=== PATIENT | female | born 1940 | race Caucasian/White ===

== ENCOUNTER 2016-11-24 22:59 | Inpatient (IN) | payer MEDICARE, OTHER ==
[2016-11-25] MEDS ORDERED: ONDANSETRON INJ 4 MG/2 ML VIAL IV ONE (00:16)
--- NOTE | 2016-11-25 00:16 | ED.PDOC ---
History of Present Illness - General Chief Complaint: GI Problem Stated Complaint: nausea Time Seen by Provider: 11/25/16 00:14 Information Source: patient Exam Limitations: no limitations - History of Present Illness Initial Comments: Lucretia Fischer 76 y/o female with hx of htn and recently being treated for uti with bactrim after c&s result sensitive.Initially was on cipro.Started bactrim tuesday but tonight after taking meds felt nauseated decided to come here.No vomiting no skin rash no fever. Abdominal Pain Onset Location: other - none Pain Radiation: other - denies abdominal pain Timing/Duration: 7-24 hours Improving Factors: nothing Worsening Factors: nothing Associated Symptoms: other - leg cramps Review of Systems - Review of Systems Constitutional: States: no symptoms reported EENTM: States: no symptoms reported Respiratory: States: no symptoms reported Cardiology: States: no symptoms reported Gastrointestinal/Abdominal: States: see HPI, nausea Genitourinary: States: no symptoms reported Musculoskeletal: States: no symptoms reported Skin: States: no symptoms reported Neurological: States: no symptoms reported Endocrine: States: no symptoms reported Hematologic/Lymphatic: States: no symptoms reported Past Medical History (General) - Patient Medical History Hx Seizures: No Hx Stroke: No Hx Dementia: No Hx Asthma: No Hx of COPD: No Hx Cardiac Disorders: No Hx Congestive Heart Failure: No Hx Pacemaker: No Hx Hypertension: Yes Hx Thyroid Disease: No Hx Diabetes: No Hx Gastroesophageal Reflux: No Hx Renal Disease: No Hx Cancer: Yes - ovarian Hx of HIV: No Hx Hepatitis C: No Hx MRSA: No Surgical History: appendectomy, cholecystectomy, Hysterectomy, other - bladder suspension,hysterectomy - Vaccination History Hx Tetanus, Diphtheria Vaccination: No Hx Influenza Vaccination: Yes Hx Pneumococcal Vaccination: Yes Immunizations Up to Date: No - Social History Hx Tobacco Use: No Hx Chewing Tobacco Use: No Hx Alcohol Use: No Hx Substance Use: No Hx Substance Use Treatment: No Hx Depression: No Feels Threatened In Home Enviroment: No Feels Threatened In a Relationship: No Hx Physical Abuse: No Hx Emotional Abuse: No Hx Suspected Abuse: No - Activities of Daily Living Patient Lives Alone: No - family Hospice Agency (if applicable):: None Grooming Ability: Independent Eating (Feeding) Ability: Independent Toileting Ability: Independent - Female History Patient is a Female of Child Bearing Age (10 -59 yrs old): No Patient : No Family Medical History - Family History Mother Family History: Unknown Hx Family Hypertension: Yes Hx Family Cancer: Yes - dad-esophagus,leukemia Hx Family;Other: dementia Physical Exam - Physical Exam General Appearance: Alert, Comfortable, No apparent distress Eyes, Ears, Nose, Throat Exam: PERRL/EOMI, normal ENT inspection, TMs normal, pharynx normal Neck: non-tender, full range of motion, supple Respiratory: chest non-tender, lungs clear Cardiovascular/Chest: normal peripheral pulses, regular rate, rhythm, no edema, no gallop, no JVD, no murmur Peripheral Pulses: No deficit Gastrointestinal/Abdominal: normal bowel sounds, non tender, soft, no organomegaly Back Exam: normal inspection, no CVA tenderness, no vertebral tenderness Extremity: normal range of motion, non-tender, normal inspection, no pedal edema , no calf tenderness Neurologic: no motor/sensory deficits, alert, normal mood/affect, oriented x 3 Skin Exam: normal color, warm/dry Lymphatic: no adenopathy Progress - Results/Orders Results/Orders: 11/25/16 01:15 EKG Assessment DAILY 11/25/16 01:22 URINALYSIS Stat Laboratory Results WBC 6.6 K/mm3 (4.8-10.8) 11/25/16 00:50 RBC 4.34 M/mm3 (4.20-5.40) 11/25/16 00:50 Hgb 13.4 gm/dL (12.0-16.0) 11/25/16 00:50 Hct 38.8 % (36.0-47.0) 11/25/16 00:50 MCV 89.6 fl (81.0-99.0) 11/25/16 00:50 MCH 30.9 pg (27.0-31.0) 11/25/16 00:50 MCHC 34.5 g/dL (33.0-37.0) 11/25/16 00:50 RDW 12.6 % (11.5-14.5) 11/25/16 00:50 Plt Count 190 K/mm3 (130-400) 11/25/16 00:50 MPV 9.0 fl (7.40-10.4) 11/25/16 00:50 Absolute Neuts (auto) 4.70 K/uL (1.8-6.8) 11/25/16 00:50 Absolute Lymphs (auto) 1.10 K/uL (1.0-3.4) 11/25/16 00:50 Absolute Monos (auto) 0.60 K/uL (0.2-0.8) 11/25/16 00:50 Absolute Eos (auto) 0.10 K/uL (0.0-0.4) 11/25/16 00:50 Absolute Basos (auto) 0.00 K/uL (0.0-0.1) 11/25/16 00:50 Neutrophils % 72.2 % (42.0-78.0) 11/25/16 00:50 Lymphocytes % 16.6 % (20.0-50.0) L 11/25/16 00:50 Monocytes % 9.6 % (2.0-9.0) H 11/25/16 00:50 Eosinophils % 0.9 % (1.0-5.0) L 11/25/16 00:50 Basophils % 0.7 % (0.0-2.0) 11/25/16 00:50 Sodium 118 mmol/L (135-145) L* 11/25/16 00:50 Potassium 4.1 mmol/L (3.6-5.0) 11/25/16 00:50 Chloride 84 mmol/L (101-111) L 11/25/16 00:50 Carbon Dioxide 24 mmol/L (21-31) 11/25/16 00:50 Anion Gap 14.1 (12-18) 11/25/16 00:50 BUN 12 mg/dL (7-18) 11/25/16 00:50 Creatinine 0.58 mg/dL (0.6-1.3) L 11/25/16 00:50 BUN/Creatinine Ratio 20.7 (10-20) H 11/25/16 00:50 Random Glucose 120 mg/dL (70-105) H 11/25/16 00:50 Serum Osmolality 235.7 mOsm/L (275-295) L* 11/25/16 00:50 Calcium 8.5 mg/dL (8.4-10.2) 11/25/16 00:50 Total Bilirubin 0.9 mg/dL (0.2-1.0) 11/25/16 00:50 AST 32 IU/L (10-42) 11/25/16 00:50 ALT 28 IU/L (10-60) 11/25/16 00:50 Alkaline Phosphatase 61 IU/L (42-121) 11/25/16 00:50 Serum Total Protein 6.8 gm/dL (6.4-8.2) 11/25/16 00:50 Albumin 4.0 g/dl (3.2-5.5) 11/25/16 00:50 Globulin 2.8 gm/dL (2.3-3.5) 11/25/16 00:50 Albumin/Globulin Ratio 1.4 (1.1-1.9) 11/25/16 00:50 Lipase 25 U/L (22-51) 11/25/16 00:50 Vital Signs - 8 hr 11/24/16 11/25/16 11/25/16 23:58 00:56 01:06 Temperature 97 F L 98.2 F Pulse Rate [ 66 66 60 monitor] Respiratory 20 20 18 Rate Blood Pressure 150/76 125/66 [Left Arm] O2 Sat by Pulse 97 97 Oximetry Departure - Departure Clinical Impression: Hyponatremia with decreased serum osmolality, Nausea Time of Disposition: 01:46 - D/W Ling Munguia ANP-Hospitalist for admit Disposition: Admit Patient Condition: Good Departure Forms: Patient Portal Self Enrollment Referrals: Carlos Bae MD [Primary Care Provider] - 1-2 Weeks Home Medications: Ambulatory Orders Chlorthalidone 12.5 mg PO DAILY 01/20/16 Enalapril Maleate [Vasotec] 20 mg PO BID 01/20/16 Levothyroxine Sodium [Synthroid] 50 mcg PO DAILY 01/20/16 Metoprolol Succinate [Metoprolol Succinate ER] 100 mg PO DAILY 01/20/16 Simvastatin [Zocor] 20 mg PO DAILY 01/20/16 Gabapentin 600 mg PO DAILY 11/25/16
[2016-11-25] MEDS ORDERED: fentaNYL CITRATE INJ 50 MCG/ML AMP ONE (01:30)
--- NOTE | 2016-11-25 02:19 | HP ---
SUPERVISING PHYSICIAN: Adam Jimenes MD CHIEF COMPLAINT: Nausea and foggy thinking. HISTORY OF PRESENT ILLNESS: This is a 76-year-old female patient with a recent history of urinary tract infection. She had been treated by PASCUAL Persaud, with Cipro at some point last week, but after her cultures were available, it was resistant to Cipro, so she changed her to Bactrim. She had taken 2-1/2 days of her antibiotics. Her urinary tract infection symptoms had improved, but yesterday she said she had really foggy thinking and what she thought was almost hot flash type symptoms as well as some nausea, but she had no vomiting. She decided to come to the Emergency Room. Her workup in the Emergency Room had a CBC that was basically within normal limits as well as mostly clear urine. Her chemistry revealed she had a sodium of 118 and serum osmolality of 235.7. She was given some fluids and I was called for admission. PAST MEDICAL HISTORY: 1. Hypertension. 2. Hypothyroidism. 3. Neuropathy, most likely right sciatica. PAST SURGICAL HISTORY: 1. Cholecystectomy. 2. Appendectomy. 3. Hysterectomy and bladder suspension. 4. Ovary removed that had some cancerous lesions on it, but was contained to that ovary. 5. Second bladder suspension. 6. Bilateral knee replacement. 7. Fracture of the left femur that was repaired. 8. Fracture of the right hip that was repaired. OUTPATIENT MEDICATIONS: Per the EMR and awaiting verification. ALLERGIES: CODEINE, WILIAM, PENICILLIN. SOCIAL HISTORY: She is . Her son lives with her. She denies any tobacco, ETOH, or illicit drug use. REVIEW OF SYSTEMS: GENERAL: positive for fatigue, negative for fever or weight changes. HEENT: Denies sinus symptoms, ear pain, vision changes or sore throat. RESPIRATORY: Denies wheezing, coughing or shortness of breath. CARDIAC: Denies chest pain, palpitations or tachycardia. GASTROINTESTINAL: Positive for nausea, negative for vomiting, diarrhea, constipation or abdominal pain. SKIN: Negative for rashes or lesions. NEUROLOGIC: Positive for general weakness, negative for seizures or dizziness. PHYSICAL EXAMINATION: GENERAL: This is a 76-year-old female who is lying in her hospital bed. She is in no acute distress. HEENT: Normocephalic, atraumatic. Pupils are equal and reactive. NECK: Supple without mass. RESPIRATORY: Clear to auscultation bilaterally. CHEST: There is equal rise and fall of the chest with inspiration and expiration. CARDIOVASCULAR: Regular rate and rhythm. ABDOMEN: Soft, nondistended, nontender. Bowel sounds are positive. EXTREMITIES: No cyanosis, clubbing or edema. NEUROLOGIC: Awake, alert and oriented times three. SKIN: Warm and dry with no lesions or rashes noted. LABORATORY: Per the history of present illness, but her second set of chemistries showed sodium improved to 120. Chloride was 87 and serum osmolality was slightly improved to 239.7. All other labs and films have been reviewed via the EMR. ASSESSMENT: 1. Hyponatremia, most likely related to increase of water intake due to recent urinary tract infection. 2. Urinary tract infection, presently on antibiotic treatment. 3. Nausea, mostly resolved and most likely related to #1. 4. Hypertension. 5. Hypothyroidism. 6. Neuropathy. PLAN: We will admit the patient to the hospital. I will re-start her Bactrim as well as her home medications. I do not see any new changes in any of her medications and I do not believe it is the Bactrim that has caused the hyponatremia, but it probably is her increased water intake, which she said she did because she the infection. I will administer 100 mL of hypertonic saline and I will recheck her sodium this afternoon as well as check a magnesium. She will do a fluid restriction of 1500 mL per day. I will check her labs in the morning. Anticipate length of stay to be [address] Jimenes is the collaborating physician and available for consultation. #[id number] [facility]
[2016-11-25] MEDS ORDERED: SODIUM CHLORIDE 0.9% (FLUSH) 10 ML SYG IV PRN (03:17)
[2016-11-25] MEDS ORDERED: ACETAMINOPHEN 325 MG TAB PO PRN (03:19)
[2016-11-25] MEDS ORDERED: ONDANSETRON INJ 4 MG/2 ML VIAL IV PRN (03:19)
[2016-11-25] MEDS ORDERED: PANTOPRAZOLE SODIUM IV 40 MG VIAL IV SCH (03:30)
[2016-11-25] MEDS ORDERED: IV SET AND CAP CHANGE INJ INJ SCH (03:30)
[2016-11-25] MEDS: SODIUM CHLORIDE 0.9% 1000ML 1,000 ML IVS PRN ×2 (03:54→15:54)
[2016-11-25] MEDS ORDERED: SOD CHL 3% *HYPERTONIC* 500ML 500 ML IVS ONE (07:46)
[2016-11-25] MEDS ORDERED: METOPROLOL SUCCINATE XL 50 MG TAB ONE (08:01)
[2016-11-25] MEDS ORDERED: ENALAPRIL MALEATE 5 MG TAB ONE (08:01)
[2016-11-25] MEDS ORDERED: GABAPENTIN 300 MG CAP ONE (08:02)
[2016-11-25] MEDS: GABAPENTIN 300 MG CAP PO SCH (09:12)
[2016-11-25] MEDS: LEVOTHYROXINE SODIUM 0.025 MG TAB PO SCH (09:12)
[2016-11-25] MEDS: METOPROLOL SUCCINATE XL 100 MG TAB PO SCH (09:15)
[2016-11-25] MEDS: ENALAPRIL MALEATE 5 MG TAB PO SCH ×2 (09:15→21:36)
[2016-11-25] MEDS: SIMVASTATIN 20 MG TAB PO SCH (09:15)
[2016-11-25] MEDS: CHLORTHALIDONE 25 MG TAB PO SCH (09:15)
[2016-11-25] MEDS ORDERED: SOD CHL 3% *HYPERTONIC* 500ML 100 ML IVS ONE (10:31)
[2016-11-25] MEDS: cefTRIAXone SODIUM 1 GM in SODIUM CHL 0.9% 50ML MIN-BAG+ 50 ML IVPB SCH (12:12)
[2016-11-25] MEDS ORDERED: cefTRIAXone SODIUM 1 GM in SODIUM CHL 0.9% 50ML MIN-BAG+ 50 ML IVPB SCH (12:30)
[2016-11-25] MEDS: BIFIDOBACTERIUM INFANTIS 4 MG CAP PO SCH (14:53)
[2016-11-25] MEDS ORDERED: SODIUM CHL 0.9% 50ML MIN-BAG+ 50 ML IVPB ONE (20:41)
[2016-11-25] MEDS ORDERED: PANTOPRAZOLE SODIUM TAB 40 MG PO ONE (20:41)
[2016-11-25] MEDS ORDERED: cefTRIAXone SODIUM 1 GM VIAL ONE (20:42)
[2016-11-26] MEDS: cefTRIAXone SODIUM 1 GM in SODIUM CHL 0.9% 50ML MIN-BAG+ 50 ML IVPB SCH (00:06)
[2016-11-26] MEDS: SODIUM CHLORIDE 0.9% 1000ML 1,000 ML IVS PRN (00:07)
[2016-11-26] MEDS: LEVOTHYROXINE SODIUM 0.025 MG TAB PO SCH (06:24)
[2016-11-26] MEDS ORDERED: PANTOPRAZOLE SODIUM TAB 40 MG PO SCH (06:30)
[2016-11-26] MEDS: BIFIDOBACTERIUM INFANTIS 4 MG CAP PO SCH (09:09)
[2016-11-26] MEDS: ENALAPRIL MALEATE 5 MG TAB PO SCH (09:09)
[2016-11-26] MEDS: CHLORTHALIDONE 25 MG TAB PO SCH (09:10)
[2016-11-26] MEDS: GABAPENTIN 300 MG CAP PO SCH (09:10)
[2016-11-26] MEDS: METOPROLOL SUCCINATE XL 100 MG TAB PO SCH (09:12)
[2016-11-26] MEDS: SIMVASTATIN 20 MG TAB PO SCH (09:12)
[2016-11-26 10:56] VITALS: BP 133/68; TEMP 98.4; O2SAT 94
--- NOTE | 2016-11-26 17:17 | DS ---
SUPERVISING PHYSICIAN: Kd Jimenes M.D. DISCHARGE DIAGNOSIS: 1. Hyponatremia, most likely related to increased water intake due to recent urinary tract infection and may have been complicated by her Bactrim antibiotic. 2. Urinary tract infection, presently on antibiotic treatment. 3. Nausea, mostly resolved and most likely related to #1. 4. Hypertension. 5. Hypothyroidism. 6. Neuropathy. HISTORY OF PRESENT ILLNESS: This is a 76 year-old female patient that had a recent history of a urinary tract infection. She had been treated by PASCUAL Persaud, with Cipro on the week prior to her admission. When her culture and sensitivities were available, it was found to be resistant to Cipro and she was changed to Bactrim. Over the next several days when she took her Bactrim, she also increased her fluid intake. On the date of admission, she had some what she called foggy thinking as well as some hot flash type symptoms, as well as nausea but no vomiting. After this had gone on for several hours, she decided to come to the Emergency Room. In the Emergency Room, her workup showed that she had an essentially normal CBC as well as her urinalysis was within normal limits, but her chemistry revealed she had a sodium of 118 with a serum osmolality of 235.7. In the Emergency Room, she was given some IV fluids and I admitted her to the hospital. HOSPITAL COURSE: Initially her sodium only went up to 120 even after fluid restrictions, so I gave her a small bolus of hypertonic saline solution. She was also placed on Rocephin and her Bactrim was discontinued. She was given Rocephin for her urinary tract infection. She had no further complications in her stay. Her nausea resolved as well as her confusion and foggy thinking. She also had no complaints of any hot flash type symptoms. Today, her sodium is now 129. Her chloride is 100, BUN 11 and creatinine 0.63. Serum osmolality is 258.1. At this point, I believe that she can be discharged home. DISCHARGE PLAN: The patient will be discharged home in good condition. She is to resume her previous activities as well as her previous diet. She has an appointment with Dr. Bae on the at 9:45. She has been instructed to come to the hospital lab on the for a BMP so those results will be available to Dr. Bae. I have sent her home on a prescription of Cefdinir. She will have a total regimen of antibiotics for 10 days including her hospital stay. She has also been given some probiotics. She is to return to the hospital or call Dr. Bae's office for any further complications. DISCHARGE MEDICATIONS: 1. Simvastatin. 2. Metoprolol. 3. Levothyroxine. 4. Vasotec. 5. Chlorthalidone. 6. Gabapentin. 7. Align. 8. Cefdinir. Dr. Jimenes is the collaborating physician available for consultation. #[id number] [facility]
== END 2016-11-26 11:27 | disposition home or self-care (01) | DRG 641 ==
LOC: ER 22:59 → MS 11-25 02:19 → OBSVTOIN 11-25 02:19
PROVIDERS: ADMIT Nurse Practitioner Acute Care; ATTEND Nurse Practitioner Acute Care
DX: E87.1 Hypo-osmolality and hyponatremia (principal); N39.0 Urinary tract infection, site not specified; R11.0 Nausea; I10 Essential (primary) hypertension; E03.9 Hypothyroidism, unspecified; G62.9 Polyneuropathy, unspecified; Z88.0 Allergy status to penicillin; Z88.6 Allergy status to analgesic agent; Z88.8 Allergy status to other drugs, medicaments and biological substances; Z96.653 Presence of artificial knee joint, bilateral; Z16.23 Resistance to quinolones and fluoroquinolones

== ENCOUNTER → 2016-12-08 | Outpatient (CLI) | payer MEDICARE, OTHER | END | disposition home or self-care (01) | LOC: LAB.O 08:10 | PROVIDERS: ATTEND Nurse Practitioner Acute Care | DX: E87.1 Hypo-osmolality and hyponatremia (principal) ==

== ENCOUNTER → 2016-12-21 | Outpatient (CLI) | payer MEDICARE, OTHER | END | disposition home or self-care (01) | LOC: LAB.O 09:46 | PROVIDERS: ATTEND Obstetrics & Gynecology | DX: E78.1 Pure hyperglyceridemia (principal) ==

== ENCOUNTER → 2017-02-15 | Outpatient (CLI) | payer MEDICARE, OTHER ==
--- NOTE | 2017-02-16 09:51 | MRI ---
EXAM DESCRIPTION: Lumbar Spine w/o Contrast CLINICAL HISTORY: 76 years, Female, LUMBAR RADICULOPATHY right hip and leg pain COMPARISON: None. FINDINGS: Sagittal and axial sequences. Bone marrow has normal signal characteristics. Conus terminates at L2. For purposes of numbering L5 is considered a transitional vertebrae. Benign appearing Cyst slightly more and 6 cm upper left kidney. Small subcentimeter cyst right kidney. At L1-2, right lateral protruding disc about 5 mm narrows the exit foramen. There is also a large left lateral protruding disc about 4 mm narrowing of left exit foramen probable slight impingement on the exiting left L1 root. Mild degenerative change. Mild central stenosis. Narrowing L2-3 with diffuse bulging disc osteophyte asymmetric to the left. Narrowing of the left exit foramen and impingement on the exiting left L2 root. Facet degenerative change and mild central stenosis. Probable slight impingement on the left lateral recess Narrowing L3-4 with diffuse bulging disc osteophyte asymmetric to the left. Bilateral moderately severe foraminal narrowing. Moderately severe central stenosis. Bilateral lateral recess encroachment, more on the left. Narrowing L4-5 with about 5 mm of anterolisthesis. Diffuse bulging disc extending the exit foramen bilaterally more on the right. Moderate central stenosis At L5-S1 minimal bulge asymmetric to the right with facet degenerative change. IMPRESSION: 1. Extensive disc disease throughout the lumbar spine 2. Changes probably most advanced at L3-4 and L4-5 with bulging disc and moderate central stenosis at both levels. Bilateral foraminal narrowing at these levels. 3. Fairly severe disease L2-3 as well with bulging disc osteophyte impingement on the exiting left L2 root. 4. Mildly severe disease L1-2 with bilateral foraminal narrowing and mild central stenosis Electronically signed by: Flaco Barnes MD 02/16/2017 9:50 AM CDT
== END | disposition home or self-care (01) ==
LOC: MRI 10:05
PROVIDERS: ATTEND Psychiatry & Neurology Neurology
DX: G60.3 Idiopathic progressive neuropathy (principal); M51.16 Intervertebral disc disorders with radiculopathy, lumbar region; M81.0 Age-related osteoporosis without current pathological fracture

== ENCOUNTER → 2017-02-22 | Outpatient (CLI) | payer MEDICARE, OTHER | END | disposition home or self-care (01) | LOC: LAB.O 09:37 | PROVIDERS: ATTEND Obstetrics & Gynecology | DX: E03.9 Hypothyroidism, unspecified (principal); E78.5 Hyperlipidemia, unspecified; E87.1 Hypo-osmolality and hyponatremia; I10 Essential (primary) hypertension ==

== ENCOUNTER → 2017-05-16 | Outpatient (CLI) | payer MEDICARE, OTHER ==
--- NOTE | 2017-05-17 14:31 | RAD ---
EXAM DESCRIPTION: Chest,2 Views CLINICAL HISTORY: Encounter for other preprocedural examination COMPARISON: June 24, 2012 FINDINGS: The cardiomediastinal silhouette is unremarkable. Evidence of old healed granulomatous disease with a calcified lymph node in the AP window and a tiny calcified granuloma in the mid left lung. There is no airspace consolidation or pleural effusion. There is chronic elevation of the right hemidiaphragm. There is no pneumothorax or acute fracture. IMPRESSION: No acute findings. Electronically signed by: Diallo Wilcox MD 05/17/2017 2:29 PM CDT
== END | disposition home or self-care (01) ==
LOC: LAB.O 14:39
PROVIDERS: ATTEND Obstetrics & Gynecology
DX: Z01.811 Encounter for preprocedural respiratory examination (principal); Z01.812 Encounter for preprocedural laboratory examination

== ENCOUNTER → 2017-05-17 | Outpatient (CLI) | payer MEDICARE, OTHER | END | disposition home or self-care (01) | LOC: RESP 09:54 | PROVIDERS: ATTEND Obstetrics & Gynecology | DX: Z01.810 Encounter for preprocedural cardiovascular examination (principal) ==

== ENCOUNTER 2017-06-12 10:10 | Emergency (ER) | payer MEDICARE, OTHER ==
[2017-06-12 10:29] VITALS: BP 166/89; TEMP 97.8; O2SAT 98
[2017-06-12] MEDS ORDERED: NITROFURANTOIN MONOHYDRATE MAC 100 MG CAP PO ONE (10:52)
--- NOTE | 2017-06-12 10:56 | ED.PDOC ---
History of Present Illness - General Chief Complaint: Problem Stated Complaint: Dysuria, urgency, frequeny Time Seen by Provider: 06/12/17 10:17 Source: patient Exam Limitations: no limitations - History of Present Illness Initial Comments: the patient is a 76-year-old female presenting to the emergency room secondary to symptoms of a UTI for the last 2-3 days. She has had some urinary frequency and dysuria. No back pain and no fevers. She did have a urinary tract infection about 6 or 7 months ago. No history of any kidney problems. No hematuria. She did have a surgery a few weeks ago and was uncertain if she had a catheter during the procedure. Timing/Duration: other Severity: moderate Improving Factors: nothing Worsening Factors: nothing Associated Symptoms: denies symptoms Allergies/Adverse Reactions: Allergies Codeine Allergy (Verified 11/24/16 23:58) Fexofenadine [From Varsha] Allergy (Verified 11/24/16 23:58) Penicillin G Allergy (Verified 11/24/16 23:58) Home Medications: Ambulatory Orders Chlorthalidone 12.5 mg PO DAILY 01/20/16 Enalapril Maleate [Vasotec] 20 mg PO BID 01/20/16 Levothyroxine Sodium [Synthroid] 50 mcg PO DAILY 01/20/16 Metoprolol Succinate [Metoprolol Succinate ER] 100 mg PO DAILY 01/20/16 Simvastatin [Zocor] 10 mg PO DAILY 01/20/16 Gabapentin 600 mg PO BID #0 11/25/16 Celecoxib [Celebrex] 200 mg PO BID 06/12/17 Nitrofurantoin Monohydrate Mac [Macrobid] 100 mg PO BID #10 cap 06/12/17 Review of Systems - Review of Systems Constitutional: States: no symptoms reported EENTM: States: no symptoms reported Respiratory: States: no symptoms reported Cardiology: States: no symptoms reported Gastrointestinal/Abdominal: States: no symptoms reported Genitourinary: States: see HPI Musculoskeletal: States: no symptoms reported Skin: States: no symptoms reported Neurological: States: no symptoms reported Endocrine: States: no symptoms reported All other Systems: No Change from Baseline Past Medical History (General) - Patient Medical History Hx Seizures: No Hx Stroke: No Hx Dementia: No Hx Asthma: No Hx of COPD: No Hx Cardiac Disorders: Yes - hypercholesterolemia Hx Congestive Heart Failure: No Hx Pacemaker: No Hx Hypertension: Yes Hx Thyroid Disease: Yes Hx Diabetes: No Hx Gastroesophageal Reflux: No Hx Renal Disease: No Hx Cancer: Yes - ovarian Hx of HIV: No Hx Hepatitis C: No Hx MRSA: No Surgical History: other - Vaccination History Hx Tetanus, Diphtheria Vaccination: No Hx Influenza Vaccination: Yes - 2017 Hx Pneumococcal Vaccination: Yes Immunizations Comment: Shingles vaccine 2015; had DPT 2015 - Social History Hx Tobacco Use: No Hx Chewing Tobacco Use: No Hx Alcohol Use: No Hx Substance Use: No Hx Substance Use Treatment: No Hx Depression: No Hx Physical Abuse: No Hx Emotional Abuse: No Hx Suspected Abuse: No - Female History Patient : No Family Medical History - Family History Mother Family History: Unknown Hx Family Hypertension: Yes Hx Family Cancer: Yes - dad-esophagus,leukemia Hx Family;Other: dementia Physical Exam - Physical Exam General Appearance: Alert, Comfortable, No apparent distress Eye Exam: bilateral normal Ears, Nose, Throat: hearing grossly normal Neck: full range of motion, supple Respiratory: no respiratory distress, no accessory muscle use Cardiovascular/Chest: normal peripheral pulses, no edema, other - regular rate Peripheral Pulses: radial,right: 2+, radial,left: 2+ Rectal Exam: deferred Back Exam: no CVA tenderness, no vertebral tenderness Extremity: non-tender, no pedal edema, no calf tenderness, normal capillary refill Neurologic: well tender II-XII nml as tested, alert, normal mood/affect, oriented x 3 Skin Exam: normal color Comments: Vital Signs - 24 hr 06/12/17 10:15 Temperature 97.8 F Pulse Rate [ 65 Left Radial] Respiratory 20 Rate Blood Pressure 166/89 [Left Arm] O2 Sat by Pulse 98 Oximetry Progress - Progress Progress: 06/12/17 10:54 the patient's 76-year-old female presenting to the emergency room secondary to symptoms of urinary tract infection. She does appear to have a urinary tract infection based on the urinalysis. A urine culture is being done. The patient is going to be placed on Macrobid 100 mg twice daily for the next 5 days. She does need follow-up with her primary care doctor in 5 days to recheck the urine culture as well as to repeat a urinalysis to confirm clearing. She needs to increase her fluid intake. Motrin can be used for discomfort. ER warnings were given for any significant worsening. No evidence of sepsis or pyelonephritis at this time. - Results/Orders Results/Orders: Laboratory Tests 06/12/17 10:19 Urine Color Yellow Urine Appearance Cloudy Urine pH 7.0 Ur Specific [place] 1.020 Urine Protein Trace Urine Glucose (UA) Negative Urine Ketones Negative Urine Blood Large H Urine Nitrite Negative Urine Bilirubin Negative Urine Urobilinogen 0.2 Ur Leukocyte Esterase Small H Urine RBC 20-30 H Urine WBC 10-20 H Ur Epithelial Cells 3-5 Urine Bacteria 3+ H Departure - Departure Clinical Impression: Cystitis Disposition: Discharge to Home or Self Care Condition: Fair Departure Forms: ED Discharge - Pt. Copy, Patient Portal Self Enrollment Instructions: DI for Urinary Tract Infection (UTI) Diet: regular diet Activity: increase activity as tolerated Referrals: Carlos Bae MD [Primary Care Provider] - 1-2 Weeks Prescriptions: Nitrofurantoin Monohydrate Mac [Macrobid] 100 mg PO BID #10 cap Home Medications: Ambulatory Orders Chlorthalidone 12.5 mg PO DAILY 01/20/16 Enalapril Maleate [Vasotec] 20 mg PO BID 01/20/16 Levothyroxine Sodium [Synthroid] 50 mcg PO DAILY 01/20/16 Metoprolol Succinate [Metoprolol Succinate ER] 100 mg PO DAILY 01/20/16 Simvastatin [Zocor] 10 mg PO DAILY 01/20/16 Gabapentin 600 mg PO BID #0 11/25/16 Celecoxib [Celebrex] 200 mg PO BID 06/12/17 Nitrofurantoin Monohydrate Mac [Macrobid] 100 mg PO BID #10 cap 06/12/17 Additional Instructions: the patient's 76-year-old female presenting to the emergency room secondary to symptoms of urinary tract infection. She does appear to have a urinary tract infection based on the urinalysis. A urine culture is being done. The patient is going to be placed on Macrobid 100 mg twice daily for the next 5 days. She does need follow-up with her primary care doctor in 5 days to recheck the urine culture as well as to repeat a urinalysis to confirm clearing. She needs to increase her fluid intake. Motrin can be used for discomfort. ER warnings were given for any significant worsening. No evidence of sepsis or pyelonephritis at this time.
== END 2017-06-12 11:06 | disposition home or self-care (01) ==
LOC: ER 10:10
DX: N30.90 Cystitis, unspecified without hematuria (principal); I10 Essential (primary) hypertension; E07.9 Disorder of thyroid, unspecified; Z85.43 Personal history of malignant neoplasm of ovary; Z88.6 Allergy status to analgesic agent; Z88.0 Allergy status to penicillin

== ENCOUNTER → 2019-05-03 | Outpatient (CLI) | payer MEDICARE, OTHER ==
--- NOTE | 2019-05-04 17:19 | MAM ---
EXAM DESCRIPTION: 3D Screening BILATERAL : Digital Mammography. CLINICAL HISTORY: 78 years Female ANNUAL SCREENING .. No complaints. No personal history of breast cancer. Remote family history of breast cancer. Menarche age 9. Childbirth. Postmenopausal 30+ years. No HRT. Lifetime risk of developing breast cancer (Tyrer-Cuzick model)(%): 2.0. COMPARISON: 2-D digital screening bilateral mammography 28 October 2015.. TECHNIQUE: Bilateral CC and MLO projection full-field images, digital tomosynthesis mammographic technique. Bilateral digital 2-D full-field MLO images. CAD not available for tomosynthesis or 2-D images. FINDINGS: The breast parenchymal density pattern is: Scattered areas of fibroglandular density. No skin thickening or nipple retraction. Bilateral solitary microcalcifications. Bilateral vascular calcifications. Bilateral skin moles. Bilateral solitary microcalcifications. Bilateral retroareolar calcifications more on the right. No new focal, stellate mass or density, focal asymmetry , and no suspicious microcalcifications bilaterally. Stable mammograms compared to prior study. Taking into account, differences in mammographic technique. IMPRESSION: Benign exam. BIRAD CATEGORY: 2 BENIGN FINDINGS. RECOMMENDATIONS: FOLLOW UP: Routine digital bilateral mammographic screening, one year interval from April 2019. Written communication explaining the IMPRESSION and follow-up, will be mailed to the patient and referring health care provider. According to the [employer], yearly mammograms are recommended starting at age 40 and continuing as long as a woman is in good health. Any breast change noted on a breast self-exam should be reported promptly to the patient's healthcare provider. Breast MRI is recommended for women with an approximately 20-25% or greater lifetime risk of breast cancer, including women with a strong family history of breast or ovarian cancer and women who have been treated for Hodgkin's disease. A negative mammographic report should not delay tissue diagnosis in patients with significant clinical history or physical findings. Extremely dense breast tissue limits the sensitivity of digital mammography. Electronically signed by: Yair Davis MD 05/04/2019 5:17 PM CDT
== END ==
LOC: MAMMO 07:39
PROVIDERS: ATTEND Obstetrics & Gynecology
DX: Z12.31 Encounter for screening mammogram for malignant neoplasm of breast (principal)

== ENCOUNTER → 2019-05-09 | Outpatient (CLI) | payer MEDICARE, OTHER | LOC: LAB.O 08:49 | PROVIDERS: ATTEND Obstetrics & Gynecology | DX: Z01.419 Encounter for gynecological examination (general) (routine) without abnormal findings (principal); E03.9 Hypothyroidism, unspecified; E78.5 Hyperlipidemia, unspecified; E11.9 Type 2 diabetes mellitus without complications ==

== ENCOUNTER 2020-01-21 12:36 | Emergency (ER) | payer MEDICARE, OTHER ==
--- NOTE | 2020-01-21 13:11 | ED.PDOC ---
History of Present Illness - General Time Seen by Provider: 01/21/20 13:08 - History of Present Illness Initial Comments: 79 F +pmh presents to ED c/o right scalp laceration s/p fall. Pt informs she was outside gardening when she slipped and fell with her head hitting the concrete. She denies LOC, vision change, headache, dizziness, n/v. Denies h/o similar sx's. Denies alleviating factors. Denies any other complaints at this time. Allergies/Adverse Reactions: Allergies Codeine Allergy (Verified 11/24/16 23:58) Fexofenadine [From Varsha] Allergy (Verified 11/24/16 23:58) Penicillin G Allergy (Verified 11/24/16 23:58) Sulfamethoxazole w/Trimethoprim [From Bactrim] Allergy (Verified 01/21/20 13:11) Home Medications: Ambulatory Orders Chlorthalidone 12.5 mg PO DAILY 01/20/16 Enalapril Maleate [Vasotec] 20 mg PO BID 01/20/16 Levothyroxine Sodium [Synthroid] 50 mcg PO DAILY 01/20/16 Metoprolol Succinate [Metoprolol Succinate ER] 100 mg PO DAILY 01/20/16 Simvastatin [Zocor] 10 mg PO DAILY 01/20/16 Gabapentin 600 mg PO BID #0 11/25/16 Celecoxib [Celebrex] 200 mg PO BID 06/12/17 Nitrofurantoin Monohydrate Mac [Macrobid] 100 mg PO BID #10 cap 06/12/17 Review of Systems - Review of Systems Constitutional: Denies: chills, fever EENTM: Denies: blurred vision, double vision, ear pain, nose congestion Respiratory: Denies: cough, short of breath Gastrointestinal/Abdominal: Denies: nausea, vomiting Neurological: States: other - no dizziness, no syncope. Denies: headache Hematologic/Lymphatic: Denies: blood clots, easy bleeding, easy bruising Past Medical History (General) - Patient Medical History Hx Seizures: No Hx Stroke: No Hx Dementia: No Hx Asthma: No Hx of COPD: No Hx Cardiac Disorders: Yes - hypercholesterolemia Hx Congestive Heart Failure: No Hx Pacemaker: No Hx Hypertension: Yes Hx Thyroid Disease: Yes Hx Diabetes: No Hx Gastroesophageal Reflux: No Hx Renal Disease: No Hx Cancer: Yes - ovarian Hx of HIV: No Hx Hepatitis C: No Hx MRSA: No - Vaccination History Hx Tetanus, Diphtheria Vaccination: No Hx Influenza Vaccination: Yes - 2017 Hx Pneumococcal Vaccination: Yes - Social History Hx Tobacco Use: No Hx Chewing Tobacco Use: No Hx Alcohol Use: No Hx Substance Use: No Hx Substance Use Treatment: No Hx Depression: No Hx Physical Abuse: No Hx Emotional Abuse: No Hx Suspected Abuse: No - Female History Patient : No Family Medical History - Family History Mother Family History: Unknown Hx Family Hypertension: Yes Hx Family Cancer: Yes - dad-esophagus,leukemia Hx Family;Other: dementia Physical Exam - Physical Exam General Appearance: Alert, Comfortable, No apparent distress Head Injury: active bleeding, other - no holt sign, no raccoon eyes, no clear drainage from bilateral EAC's or nares, right 3 cm linear parietal/occiptal scalp laceration with mild continual bleeding and trace hematoma, no underlying crepitance, no underlying deformity, localized TTP only Eye Exam: bilateral normal, bilateral other - PERRLA, EOM intact, pupils symmetric bilaterally ENT Exam: no evidence of ENT injury, no dental injury Neck Exam: non-tender, full range of motion, normal alignment, normal inspection Cardiovascular/Respiratory: regular rate, rhythm, no M/R/G, normal peripheral pulses, no JVD, normal breath sounds, no respiratory distress Back Exam: no vertebral tenderness Extremity: normal range of motion, normal inspection Mental Status: alert, 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 Pt is not on blood thinners but does take ASA daily. Due to age and trauma I will perform CT imaging of neck and c-spine along with coags. I will suture pt's wound, place compressive dressing, and provide appropriate pharmacotherapy. I will continue to monitor/reassess and dispo will depend on workup and overall ED course; however, discharge home is expected. Ángel Martinez DO [employer]: 738 14:09 Rechecked with family at bedside. NAD, VSS, and is feeling much better at this time. I have discussed radiology results, my clinical impression, and diagnosis. I have also discussed plan for discharge home with f/u, education, need for retur in 10-12 days for staple removal. ED return precautions provided. Pt and family member voice understanding, agree with plan, and all questions answered. - Results/Orders Results/Orders: Laboratory Results - last 24 hr 01/21/20 13:30 PT 10.5 INR 1.06 PTT (SP) 21.3 L EXAM DESCRIPTION: Head CLINICAL HISTORY: 79 years Female, fall without LOC, right parietal/occip defect COMPARISON: None. TECHNIQUE: Axial images obtained from the skull base to the vertex without intravenous contrast with images. Coronal and sagittal reformations provided. This exam was performed according to our departmental dose-optimization program, which includes automated exposure control, adjustment of the mA and/or kV according to patient size and/or use of iterative reconstruction technique. Time Last Seen Well (If known) for Code Stroke: n/a FINDINGS: Brain Parenchyma, ventricles, meninges, and extra-axial spaces: Mild generalized cerebral atrophy. Mild Nonspecific white matter hypodensities in the cerebral hemispheres likely related to ischemic small vessel disease. Possible difficulty differentiating a small acute infarction given these hypodensities. No acute intracranial hemorrhage. No abnormal extra- axial fluid collection. Vascular: Atherosclerosis is within the carotid siphons. Calvarium, paranasal sinuses, mastoids, and orbits: Moderate right lateral scalp hematoma with skin inocencio in place. No underlying fracture. Mild mucosal thickening of the left maxillary sinus. Remaining paranasal sinuses and mastoids are clear. Orbits unremarkable. IMPRESSION: 1. No acute intracranial abnormality. 2. Moderate right lateral scalp hematoma with surgical skin inocencio in place. No underlying fracture. 3. Mild senescent changes. Electronically signed by: Pool Rich MD 01/21/2020 1:42 PM CDT EXAM DESCRIPTION: Cervical Spine CLINICAL HISTORY: 79 years Female, trauma COMPARISON: None. TECHNIQUE: Axial CT images were obtained through the cervical spine without contrast. Sagittal and coronal reformations provided. This exam was performed according to our departmental dose-optimization program, which includes automated exposure control, adjustment of the mA and/or kV according to patient size and/or use of iterative reconstruction technique. FINDINGS: Vertebrae and facet joints: No acute fracture or acute compression deformity. Straightening of the cervical spine. Normal AP alignment. Multilevel facet arthropathy, greatest and severe left C3-C4, left C4-C5. Disc spaces, spinal canal and neuroforamina: Moderate to severe disc space narrowing at C5-C6. Multiple disc osteophyte complexes, greatest at posterior right paracentral C5- C6 measuring 10 mm transverse and 5 mm AP contributing to severe spinal canal stenosis and flattening/indentation of the spinal cord. Multilevel neural foraminal compromise, greatest and severe at bilateral C5-C6. Paraspinous soft- tissues: Unremarkable paravertebral soft tissues. Heterogeneous and bulky right thyroid gland, ill-defined nodule measuring up to 1.8 cm. IMPRESSION: 1. No acute fracture or subluxation. 2. Cervical spondylosis as above, greatest at C5- C6. 3. Recommend dedicated ultrasound of the thyroid gland, if not already performed, to further evaluate for the thyroid findings described above. Electronically signed by: Pool Rich MD 01/21/2020 1:48 PM CDT - [id number] Procedures - Laceration/Wound Repair Right Posterior Lateral Parietal Wound Length (cm): 3 Wound's Depth, Shape: superficial, linear Wound Explored: clean Irrigated w/ Saline (cc's): 1,000 Betadine Prep?: No Wound Repaired With: inocencio Number of Sutures: 7 Layer Closure?: No Sterile Dressing Applied?: No Splint Applied?: No Sling Applied?: No Progress: Compressive dressing placed. Pt tolerated well without complication. Departure - Departure Clinical Impression: Fall Qualifiers: Encounter type: initial encounter Qualified Code(s): W19.XXXA - Unspecified fall, initial encounter Scalp laceration Qualifiers: Encounter type: initial encounter Qualified Code(s): S01.01XA - Laceration without foreign body of scalp, initial encounter Time of Disposition: 14:10 Disposition: Discharge to Home or Self Care Condition: Excellent Departure Forms: ED Discharge - Pt. Copy, Patient Portal Self Enrollment Instructions: Preventing Falls in the Older Adult, Laceration Repair With Inocencio (DC), Head Injury Observation (DC) Diet: resume usual diet Referrals: Carlos Bae MD [Primary Care Provider] - 1-2 Days Home Medications: Ambulatory Orders Chlorthalidone 12.5 mg PO DAILY 01/20/16 Enalapril Maleate [Vasotec] 20 mg PO BID 01/20/16 Levothyroxine Sodium [Synthroid] 50 mcg PO DAILY 01/20/16 Metoprolol Succinate [Metoprolol Succinate ER] 100 mg PO DAILY 01/20/16 Simvastatin [Zocor] 10 mg PO DAILY 01/20/16 Gabapentin 600 mg PO BID #0 11/25/16 Celecoxib [Celebrex] 200 mg PO BID 06/12/17 Nitrofurantoin Monohydrate Mac [Macrobid] 100 mg PO BID #10 cap 06/12/17
--- NOTE | 2020-01-21 13:43 | CT ---
EXAM DESCRIPTION: Head CLINICAL HISTORY: 79 years Female, fall without LOC, right parietal/occip defect COMPARISON: None. TECHNIQUE: Axial images obtained from the skull base to the vertex without intravenous contrast with images. Coronal and sagittal reformations provided. This exam was performed according to our departmental dose-optimization program, which includes automated exposure control, adjustment of the mA and/or kV according to patient size and/or use of iterative reconstruction technique. Time Last Seen Well (If known) for Code Stroke: n/a FINDINGS: Brain Parenchyma, ventricles, meninges, and extra-axial spaces: Mild generalized cerebral atrophy. Mild Nonspecific white matter hypodensities in the cerebral hemispheres likely related to ischemic small vessel disease. Possible difficulty differentiating a small acute infarction given these hypodensities. No acute intracranial hemorrhage. No abnormal extra-axial fluid collection. Vascular: Atherosclerosis is within the carotid siphons. Calvarium, paranasal sinuses, mastoids, and orbits: Moderate right lateral scalp hematoma with skin jessica in place. No underlying fracture. Mild mucosal thickening of the left maxillary sinus. Remaining paranasal sinuses and mastoids are clear. Orbits unremarkable. IMPRESSION: 1. No acute intracranial abnormality. 2. Moderate right lateral scalp hematoma with surgical skin jessica in place. No underlying fracture. 3. Mild senescent changes. Electronically signed by: Pool Rich MD 01/21/2020 1:42 PM CDT
--- NOTE | 2020-01-21 13:50 | CT ---
EXAM DESCRIPTION: Cervical Spine CLINICAL HISTORY: 79 years Female, trauma COMPARISON: None. TECHNIQUE: Axial CT images were obtained through the cervical spine without contrast. Sagittal and coronal reformations provided. This exam was performed according to our departmental dose-optimization program, which includes automated exposure control, adjustment of the mA and/or kV according to patient size and/or use of iterative reconstruction technique. FINDINGS: Vertebrae and facet joints: No acute fracture or acute compression deformity. Straightening of the cervical spine. Normal AP alignment. Multilevel facet arthropathy, greatest and severe left C3-C4, left C4-C5. Disc spaces, spinal canal and neuroforamina: Moderate to severe disc space narrowing at C5-C6. Multiple disc osteophyte complexes, greatest at posterior right paracentral C5-C6 measuring 10 mm transverse and 5 mm AP contributing to severe spinal canal stenosis and flattening/indentation of the spinal cord. Multilevel neural foraminal compromise, greatest and severe at bilateral C5-C6. Paraspinous soft-tissues: Unremarkable paravertebral soft tissues. Heterogeneous and bulky right thyroid gland, ill-defined nodule measuring up to 1.8 cm. IMPRESSION: 1. No acute fracture or subluxation. 2. Cervical spondylosis as above, greatest at C5-C6. 3. Recommend dedicated ultrasound of the thyroid gland, if not already performed, to further evaluate for the thyroid findings described above. Electronically signed by: Pool Rich MD 01/21/2020 1:48 PM CDT
[2020-01-21] MEDS ORDERED: HYDROcodone 5MG/APAP 325MG 1 EA TAB PO ONE (14:12)
[2020-01-21 14:46] VITALS: BP 136/70; TEMP 97.4; O2SAT 98
== END 2020-01-21 14:35 | disposition home or self-care (01) ==
LOC: ER 12:46
DX: S01.01XA Laceration without foreign body of scalp, initial encounter (principal); Z79.899 Other long term (current) drug therapy; W01.0XXA Fall on same level from slipping, tripping and stumbling without subsequent striking against object, initial encounter; Y92.9 Unspecified place or not applicable

== ENCOUNTER → 2020-02-21 | Outpatient (CLI) | payer MEDICARE, OTHER ==
--- NOTE | 2020-02-23 18:44 | US ---
US THYROID CLINICAL STATEMENT:79 years Female NONTOXIC SINGLE THYROID NODULE. COMPARISON: None TECHNIQUE: Transcutaneous scanning, grayscale and Doppler modes. FINDINGS: Size right thyroid lobe: 4.4 x 2.1 x 2.0 cm Size left thyroid lobe: 3.8 x 1.1 x 1.1 cm Size isthmus: 0.24 cm Estimated total number of nodules greater than or equal to 1 cm: 4. Heterogeneous gland. No cysts or fluid collections or large calcifications. Nodule 1: Size: 1.9 x 1.2 X 1.2 cm Location: Left Upper Composition: solid or almost completely solid: 2 points Echogenicity: hypoechoic: 2 points Shape: wider than tall: 0 points Margins: smooth: 0 points Echogenic foci: none: 0 points ACR Total Points: 4; ACR TI-RADS risk category: TR4 - moderately suspicious nodule. Nodule 2: Size: 1.8 x 1.5 x 1.3 cm Location: Right Mid Composition: solid or almost completely solid: 2 points Echogenicity: hypoechoic: 2 points Shape: wider than tall: 0 points Margins: smooth: 0 points Echogenic foci: none: 0 points ACR Total Points: 4; ACR TI-RADS risk category: TR4 - moderately suspicious nodule. Nodule 3: Size: 1.3 x 1.2 x 1.1 cm Location: Right Lower Composition: solid or almost completely solid: 2 points Echogenicity: hyperechoic: 1 point Shape: wider than tall: 0 points Margins: smooth: 0 points Echogenic foci: none: 0 points ACR Total Points: 4; ACR TI-RADS risk category: TR4 - moderately suspicious nodule. Nodule 4: Size: 1.1 x 1.0 x 0.8 cm Location: Right Upper Composition: solid or almost completely solid: 2 points Echogenicity: isoechoic: 1 point Shape: wider than tall: 0 points Margins: smooth: 0 points Echogenic foci: none: 0 points ACR Total Points: 3; ACR TI-RADS risk category: TR3 - mildly suspicious nodule. No dominant solid mass, no distinct cysts, no parenchymal edema, no large calcifications. IMPRESSION: 1. Nodule 1: ACR TI-RADS 2017 Category TR4. Recommend: Ultrasound-guided fine needle aspiration. Recommendations based upon [employer] Best Practice recommendations and ACR TI-RADS 2017 guidelines. Please see below*. 2. Nodule 2: ACR TI-RADS 2017 Category TR4. Recommend: Ultrasound-guided fine needle aspiration 3. Nodule 3: ACR TI-RADS 2017 Category TR4. Recommend: Follow-up ultrasound in 1 year. 4. Nodule 4: ACR TI-RADS 2017 Category TR3. Recommend: Follow-up ultrasound in 1 year. 5. Soft tissue around the thyroid gland is unremarkable. *ACR TI-RADS 2017 Recommendations for imaging follow-up of nodules: TR1: No FNA or follow up TR2: No FNA or follow up TR3: FNA if >/= 2.5 cm, follow up if 1.5 - 2.4 cm in 1, 3, and 5 years TR4: FNA if >/= 1.5 cm, follow up if 1.0 - 1.4 cm in 1, 2, 3, and 5 years TR5: FNA if >/= 1.0 cm, follow up if 0.5 - 0.9 cm every year for 5 years ACR TI-RADS recommends that no more than two nodules with the highest ACR TI-RADS total point should be biopsied and no more than four nodules should be followed. These recommendations do not apply to patients with increased risk for thyroid cancer or patients with symptomatic thyroid disease. Electronically signed by: Yair Davis MD 02/23/2020 6:42 PM CDT
== END ==
LOC: US 10:20
PROVIDERS: ATTEND Obstetrics & Gynecology
DX: E04.2 Nontoxic multinodular goiter (principal)

== ENCOUNTER → 2020-04-22 | Outpatient (CLI) | payer MEDICARE, OTHER | LOC: LAB.O 08:11 | PROVIDERS: ATTEND Obstetrics & Gynecology | DX: Z00.00 Encounter for general adult medical examination without abnormal findings (principal) ==

== ENCOUNTER → 2020-05-05 | Outpatient (CLI) | payer MEDICARE, OTHER ==
--- NOTE | 2020-05-06 17:24 | MAM ---
EXAM DESCRIPTION: 3D Screening BILATERAL : Digital Mammography. CLINICAL HISTORY: 79 years Female SCREENING . No complaints. Remote family history of breast cancer. Menarche age 9. Childbirth age 16. Menopause age 45. No HRT. Lifetime risk of developing breast cancer (Tyrer-Cuzick model)(%): Not calculated COMPARISON: Bilateral screening digital breast tomosynthesis April 2019. And bilateral screening 2-D digital examination October 2015 TECHNIQUE: Bilateral CC and MLO projection full-field images, digital tomosynthesis mammographic technique. Bilateral digital 2-D full-field MLO images. CAD available for 2-D images. MLO images of the left breast are limited due to patient physical status. FINDINGS: The breast parenchymal density pattern is: Heterogeneously dense breast tissue, which may obscure small masses. No skin thickening or nipple retraction. Vascular calcifications. Solitary calcifications. Most dense fibroglandular tissues are retroareolar. Smaller calcifications associated with focal densities are unchanged. No new focal, stellate mass or density, focal asymmetry , and no suspicious microcalcifications bilaterally. Stable mammograms compared to prior study. IMPRESSION: Benign exam. BIRAD CATEGORY: 2 BENIGN FINDINGS. RECOMMENDATIONS: FOLLOW UP: Routine digital bilateral mammographic screening, one year interval from April 2020. Written communication explaining the IMPRESSION and follow-up, will be mailed to the patient and referring health care provider. According to the [employer], yearly mammograms are recommended starting at age 40 and continuing as long as a woman is in good health. Any breast change noted on a breast self-exam should be reported promptly to the patient's healthcare provider. Breast MRI is recommended for women with an approximately 20-25% or greater lifetime risk of breast cancer, including women with a strong family history of breast or ovarian cancer and women who have been treated for Hodgkin's disease. A negative mammographic report should not delay tissue diagnosis in patients with significant clinical history or physical findings. Extremely dense breast tissue limits the sensitivity of digital mammography. Electronically signed by: Yair Davis MD 05/06/2020 5:22 PM CDT
== END ==
LOC: MAMMO 11:00
PROVIDERS: ATTEND Obstetrics & Gynecology
DX: Z12.31 Encounter for screening mammogram for malignant neoplasm of breast (principal)